=== PATIENT | female | born 1955 | race Caucasian/White ===

== ENCOUNTER 2018-03-20 08:54 | Day surgery (SDC) | payer OTHER ==
[~2018-03-20] VITALS: Ht 165.1 cm; Wt 79.4 kg
[2018-03-20] MEDS ORDERED: METF500T PO (10:44)
[2018-03-20] MEDS ORDERED: MIDAZOLAM 2 MG/2 ML VIAL ONE (11:51)
[2018-03-20] MEDS ORDERED: fentaNYL 0.05 MG/ML VIAL ONE (11:51)
[2018-03-20] MEDS ORDERED: MIDAZOLAM 2 MG/2 ML VIAL IVP ONE (12:00)
== END 2018-03-20 12:55 | disposition home or self-care (01) ==
LOC: MDS 08:54 → MMU 08:54 → MDS 12:55
PROVIDERS: ATTEND Internal Medicine Gastroenterology
DX: K22.2 Esophageal obstruction (principal); K20.9 Esophagitis, unspecified; K31.89 Other diseases of stomach and duodenum; F41.9 Anxiety disorder, unspecified; I10 Essential (primary) hypertension; E11.9 Type 2 diabetes mellitus without complications; E66.9 Obesity, unspecified; Z98.890 Other specified postprocedural states; Z79.899 Other long term (current) drug therapy; Z90.710 Acquired absence of both cervix and uterus
CPT/HCPCS: 36415; 43239; 82948; 86677; J2250; J3010